=== PATIENT | female | born 1975 | race Caucasian/White ===

== ENCOUNTER → 2021-04-22 07:58 | Outpatient (CLI) | payer MEDICARE, MEDICAID, SELFPAY ==
--- NOTE | 2021-04-22 07:58 | US_ITS ---
PROCEDURE: US GALLBLADDER CLINICAL INDICATION: abd pain COMPARISON: No exams were available for comparison FINDINGS: Pancreas: The pancreatic tail is not well visualized due to overlying bowel gas. The body and head of the pancreas region have an unremarkable appearance Liver: Unremarkable. There is appropriate direction of blood flow within a non dilated portal vein. Right kidney: Unremarkable appearing. No hydronephrosis. Gallbladder: There is a large stone 2.6 cm within the gallbladder fundus area. There is also some irregular gallbladder wall thickening at this region. No pericholecystic fluid or biliary dilatation. Technologist notes a positive sonographic Edwards sign. IMPRESSION: At least 1 large stone and possibly more within the gallbladder with gallbladder wall thickening which has an irregular appearance. Consider CT of the gallbladder/abdomen without and with contrast for further evaluation as a neoplastic process of the gallbladder is not excluded based on these sonographic findings. Dictated by: Ervin Parkinson MD 04/22/2021 11:32 Ervin Parkinson MD in [place] 04/22/2021 11:32
== END ==
PROVIDERS: PCP Family Medicine; Visit Provider Family Medicine
DX: R10.9 Unspecified abdominal pain (principal)
CPT/HCPCS: 76705

== ENCOUNTER → 2021-05-03 09:57 | Outpatient (CLI) | payer MEDICARE, MEDICAID, SELFPAY ==
--- NOTE | 2021-05-03 10:02 | CT_ITS ---
PROCEDURE: CT ABDOMEN WO/W CON CLINICAL HISTORY: gallbladder stones Gallbladder wall thickening COMPARISON: US US GALLBLADDER from 04/22/2021 TECHNIQUE: Images performed without and with contrast. 70 mL Isovue 370 utilized. Axial images obtained with sagittal and coronal reformats. All CT scans at the facility use one or more dose reduction, viz: automated exposure control, ma/kV adjustment per patient size (including targeted exams where dose is matched to indication, i.e. head), or iterative reconstruction technique. FINDINGS: Minimal atelectatic changes noted in the lung bases. No focal liver lesion evident. Gallstones are present. The stones are present in the fundus of the gallbladder. There is some minimal enhancement of the gallbladder wall with a small amount of pericholecystic fluid. No irregular gallbladder enhancement is evident that would indicate gallbladder carcinoma. No biliary dilatation evident. The pancreas, spleen, adrenal glands, and kidneys have an unremarkable appearance. No intestinal obstruction or free air. There are few small mesenteric lymph nodes. IMPRESSION: 1. Cholelithiasis with minimal amount of pericholecystic fluid. No irregular gallbladder enhancement or gallbladder wall thickening that would indicate gallbladder carcinoma. 2. No biliary dilatation or other significant anomaly. Dictated by: Ervin Parkinson MD 05/03/2021 12:05 Ervin Parkinson MD in [place] 05/03/2021 12:05
== END ==
PROVIDERS: PCP Family Medicine; Visit Provider Family Medicine
DX: K80.20 Calculus of gallbladder without cholecystitis without obstruction (principal)
CPT/HCPCS: 74170; Q9967

== ENCOUNTER → 2021-05-04 10:48 | Outpatient (CLI) | payer MEDICARE, MEDICAID, SELFPAY ==
[2021-05-04 11:06] LABS: Basophils # 0.1 K/mm3 (0-0.2); Basophils % 0.8 % (0.1-2.0); Eosinophils # 0.2 K/mm3 (0.0-0.4); Hematocrit 42.4 % (37.0-47.0); Hemoglobin 14.4 g/dL (12.2-16.2); Lymphocytes # 2.3 K/mm3 (0.7-4.5); Lymphocytes % 39.1 % (10-50); Mean Corpuscular Hemoglobin 31.4 pg (27.0-31.2); Mean Corpuscular Volume 92.2 fl (81-99); Mean Platelet Volume 8.4 fl (7.4-10.4); Monocytes # 0.4 K/mm3 (0.1-1.0); Neutrophils % 51.1 % (37.0-80.0); Platelet Count 329 K/mm3 (142-424); White Blood Count 5.8 K/mm3 (4.8-10.8)
[2021-05-04 11:15] LABS: Urine Pregnancy, HCG Qual. Negative (Negative)
[2021-05-04 11:43] LABS: Alanine Aminotransferase 23 U/L (12-78); Albumin/Globulin Ratio 1.3 (1.1-1.8); Alkaline Phosphatase 63 U/L (38-126); Anion Gap 14.2 mEq/L (5-15); Aspartate Amino Transferase 29 U/L (14-36); Bilirubin,Total 0.2 mg/dl (0.2-1.3); Blood Urea Nitrogen 11 mg/dl (7-17); Calcium 9.1 mg/dl (8.4-10.2); Carbon Dioxide 27 mmol/L (22.0-30.0); Chloride 103 mmol/L (98-107); Estimated Glomerular Filt Rate 68 ml/min (>60); GFR (African American) 82 ML/MIN (>60); Glucose 123 mg/dl (74-100); Potassium 4.2 mmoL/L (3.5-5.1); Sodium 140 mmol/L (136-145)
== END ==
PROVIDERS: Visit Provider Surgery
DX: K80.20 Calculus of gallbladder without cholecystitis without obstruction (principal); J45.909 Unspecified asthma, uncomplicated; Z01.812 Encounter for preprocedural laboratory examination; Z11.52 Encounter for screening for COVID-19
CPT/HCPCS: 36415; 80053; 81025; 85025; C9803; U0003; U0005

== ENCOUNTER 2021-05-06 10:09 | Day surgery (SDC) | payer MEDICARE, MEDICAID, SELFPAY ==
[2021-05-04 12:58] VITALS: BMI 32.1
[2021-05-06] VITALS (9 sets, daily range): BP systolic 134–164; BP diastolic 65–96; PULSE 70–94; RESP 14–18; TEMP 36.2–43; O2SAT 94–100
--- NOTE | 2021-05-06 13:28 | P.PN_ITS ---
[facility] Anesthesia Checklist - Patient Identification Patient Identification: Arm Band - Structural Data Admitted From: Home Planned Operative Procedure/s: Lap. cholecystectomy Consent for Planned Operative Procedure(s) Verified: Yes - NPO Status Verified Time NPO: 00:00 - Airway Assessment C-Spine Mobility Assessed: Yes TMJ Mobility Assessed: Yes Dentition: Dentures-good fit - Neurological Assessment Level of Consciousness: Awake Hx Seizures: No Numbness or tingling in extremities: No - Anesthesia Plan Anesthesia Risk discussed: Yes Anesthesia Plan: Verified ASA Class: II Anesthesia Type: General [facility] History I have reviewed the patient's past medical history: Yes Medical History: Reports:: Anxiety, Depression, Hypertension Denies:: Cancer, Diabetes Mellitus Type 1, Diabetes Mellitus Type 2, Internal Pacemaker, MRSA *Have you ever received a pneumonia vaccine?: No *Have you received a flu vaccine this season?: Yes Other Medical History: Reports: Fibromyalgia, Sinus Problems Anesthesia experience/problems:: None Other Surgeries: No: Pacemaker Amputation: No Fractures: No - *Social History Last grade of school completed: High school graduate Smoking Status: Current every day smoker Tobacco Type: cigarettes # Packs/Day (cigarettes): 1 Alcohol Intake: never Substance Use Type: denies use *Occupational Status:: disabled Housing: house *Travel in the last 8 weeks: None - Psychiatric History Pschychiatric History:: Reports:: Anxiety, Depression Family Hx:: Cancer, Diabetes, Hypertension
--- NOTE | 2021-05-06 16:01 | HMH.OPNOTE ---
Date of procedure: 05/06/21 Pre-op Diagnosis:: Acute on chronic calculus cholecystitis Post-op Diagnosis:: Same Procedure performed:: Laparoscopic cholecystectomy Surgeon:: Landen Almodovar MD Information Officer(s):: Gary ASSISTANT MANAGER BILINGUAL:: Kevin Ribera Anesthesia: GETA Estimated blood loss (mL): 15 Operative findings:: Gallbladder wall thickening Fairly large gallstone at infundibulum Fairly severe soft tissue stranding in and around infundibulum and throughout gallbladder fossa Dome down approach with Endoloop placement utilized Operative note:: After informed consent was obtained, the patient was taken to the operating room and placed in the supine position. General anesthesia was induced and the abdomen was prepped and draped in a sterile fashion. After infiltration with local anesthetic an infraumbilical incision was made. A Veress needle was placed in position. The abdomen was insufflated. A 5 mm optical trocar was placed in position. Under direct visualization, a 12 mm trocar was placed in the subxiphoid position and 2 additional 5 mm trocars were placed in the right upper quadrant. The gallbladder was elevated up and over the liver margin. Severe thickening and soft tissue stranding noted throughout. The tissue around the cystic duct was carefully dissected. Secondary to severe acute on chronic changes the decision was made to proceed with a dome down approach . Harmonic сергей were utilized to carefully dissect the gallbladder free from the liver margin. Endoloops (x2) were placed at the infundibulum. The gallbladder was transected above the Endoloops and placed in a retrieval bag. It was then removed through the subxiphoid trocar site. The right upper quadrant was thoroughly irrigated. No active bleeding or bile leak was noted. Fascia at the subxiphoid trocar site was reapproximated utilizing 0 Ethibond. The remaining trocars were removed. All wounds were irrigated and skin was closed with 4-0 Monocryl in a subcuticular fashion. Steri-Strips were applied. The patient's anesthetic agents were reversed and extubation was completed prior to transfer to recovery in stable condition. Condition: stable Disposition: PACU Specimens:: Gallbladder and contents Complications:: No immediate
--- NOTE | 2021-05-06 16:12 | P.PN_ITS ---
[facility] Anesthesia Record Part I Intake, IV Amount: 900 Estimated blood loss (mL): 15 Urine output (mL): 50 Blood Pressure: 134/80 SaO2: 95 Pulse Rate: 94 Respiratory Rate: 14 Temperature: 98.6 F Patient is:: Awake Stable to PACU at:: 16:11
--- NOTE | 2021-05-06 16:50 | SUR.PHASEI ---
1641- detailed report given to serge Hyatt.
[2021-05-08 17:06] VITALS: BP 146/94; PULSE 76; TEMP 36.2
--- NOTE | 2021-05-08 17:06 | HMH.ANESII ---
[facility] Anesthesia Record Part II Discharge Time: 16:41 Destination: Surgical Day Care (OP Surgery) PACU nurse assessment reviewed?: Yes Patient Condition:: Good Anesthesia Complications:: None Swallowing reflex intact?: Yes Cyanosis?: No Blood Pressure: 146/94 Pulse Rate: 76 Temperature: 97.2 F Mental Status: Alert & Oriented Pain level:: 0 Nausea and/or vomitting:: None Intake, IV Amount: 0
== END 2021-05-06 17:14 | disposition home or self-care (01) ==
LOC: OR 10:12
PROVIDERS: PCP Family Medicine; Visit Provider Surgery
PROC: 0FT44ZZ Resection of Gallbladder, Percutaneous Endoscopic Approach (ICD-10-PCS; CPT 47562; principal; 2021-05-06 13:00)
DX: K81.2 Acute cholecystitis with chronic cholecystitis (principal); I10 Essential (primary) hypertension; F41.9 Anxiety disorder, unspecified; F32.9 Major depressive disorder, single episode, unspecified; M79.7 Fibromyalgia; J45.909 Unspecified asthma, uncomplicated; Z72.0 Tobacco use; Z80.9 Family history of malignant neoplasm, unspecified; Z83.3 Family history of diabetes mellitus; Z82.49 Family history of ischemic heart disease and other diseases of the circulatory system; Z79.899 Other long term (current) drug therapy
CPT/HCPCS: 47562; 88304; 96374; J2405

== ENCOUNTER → 2021-12-22 12:58 | Outpatient (CLI) | payer MEDICARE, MEDICAID, SELFPAY ==
--- NOTE | 2021-12-22 12:59 | CT_ITS ---
FINAL REPORT TECHNIQUE: Axial imaging of the head was obtained with contrast. This study was performed with techniques to keep radiation doses as low as reasonably achievable, (ALARA). Individualized dose reduction techniques using automated exposure control or adjustment of mA and/or kV according to the patient's size were employed. CLINICAL HISTORY: l side weak, patient states chronic headaches that keep getting worse, left sided numbness FINDINGS: The ventricles are normal in size. There is no evidence of hemorrhage. No masses are identified. No extra-axial fluid is seen. The sinuses are normal. There is no acute osseous abnormality. There is a retention cyst or polyp in the left maxillary sinus. There is no abnormal contrast enhancement. IMPRESSION: No acute process. Retention cyst or polyp in the left maxillary sinus. Reviewed, Interpreted and Dictated by Dennis Shah III, MD Transcribed by Anabelle Peoples Authenticated by Dennis Shah III, MD on 12/22/2021 02:51:03 PM [facility]
== END ==
PROVIDERS: PCP Family Medicine; Visit Provider Family Medicine
DX: G43.909 Migraine, unspecified, not intractable, without status migrainosus (principal); R53.1 Weakness
CPT/HCPCS: 70460; Q9967

== ENCOUNTER 2024-01-29 09:26 | Day surgery (SDC) | payer MEDICARE, MEDICAID, SELFPAY ==
[2024-01-28 12:32] VITALS: BMI 33.4
[2024-01-29] VITALS (7 sets, daily range): BP systolic 99–131; BP diastolic 60–91; PULSE 64–86; RESP 16–18; TEMP 36.2; O2SAT 94–100; BMI 33.4
--- NOTE | 2024-01-29 09:49 | HMH.SCOPE ---
Procedure: Date: 01/29/24 Patient Date of :: 1975 Procedure Performed:: Colonoscopy with polypectomy Indications:: Positive Cologuard Performing Provider:: Landen Almodovar MD Referring Provider:: . Sedation:: Monitored anesthesia care Procedure:: After informed consent was obtained the patient was taken to the endoscopy suite. Sedation ensued after the patient was transferred to the left lateral decubitus position. Pulse, blood pressure, and oxygen saturation were monitored throughout the procedure. Digital rectal exam revealed no significant abnormality. The colonoscope was placed in position. The entire colon was evaluated. The colonoscope was carefully removed and the patient was transferred to recovery in stable condition. Please see findings and specimens below for detail. Findings:: Bowel preparation fair Sigmoid diverticulosis Large complex polyps (see specimens) Specimens:: Complex lobulated sessile 7 mm polyp of the right colon (hot snare and cold biopsy forceps) Pedunculated 12 mm polyp at 60 cm (hot snare) Pedunculated large polyp at 35 cm (hot snare) Complex lobulated very large pedunculated polyp at 15 cm (hot snare) Recommendations:: Timing of repeat colonoscopy is pending pathology but likely be around 1 year secondary to size/nature/number of polyps. Complications:: No immediate Estimated blood obtained (mL): 1 Colonoscopy Component Colonoscopy Component Was a colonoscopy performed during today's procedure?: Yes Recommended follow up colonoscopy of at least 10 years?: No If no, follow up colonoscopy recommended in ___ years?: (See above) Reason for not recommending >/= 10 yr follow-up interval?: (See above)
[2024-01-29] MEDS: LACTATED RINGERS 1000ML 1,000 ML 25 ML IV (10:00)
--- NOTE | 2024-01-29 10:06 | EXP.ANES.CKL ---
[facility] Disclaimer: The information contained in this section may have been updated after the patient was seen, as this information can be updated by other users. Medical History (Updated 01/29/24 @ 10:04 by Shanice Fitzgerald RN) Depression Anxiety Hypertension Family History (Updated 01/28/24 @ 12:29 by Anabelle Stewart RN) Other Family history of cancer Family history of stroke Social History Smoking Status: Current every day smoker tobacco type: cigarettes packs per day: 1 alcohol intake: never substance use type: denies use current occupational status: disabled Travel in the last 8 weeks: None housing: house caffeine: Yes [facility] Anesthesia Checklist Patient Identification Patient Identification: Verbal (Name & ) Structural Data Admitted From: Home Planned Operative Procedure/s: colonoscopy Consent for Planned Operative Procedure(s) Verified: Yes Additional verifications Anesthesia Reactions: No Hx Blood Transfusions: No Blood Transfusion Reaction: No Airway Assessment Mallampati Score:: Class II C-Spine Mobility Assessed: Yes TMJ Mobility Assessed: Yes Dentition: Dentures-good fit Neurological Assessment Level of Consciousness: Awake, Alert and Appropriate Anesthesia Plan Anesthesia Risk discussed: Yes Anesthesia Plan: Verified ASA Class: II Anesthesia Type: MAC
[2024-01-29 10:27] LABS: HCG Qualitative, Serum Negative (Negative)
--- NOTE | 2024-01-29 11:17 | P.PNANES_ITS ---
[facility] Anesthesia Record Part I Anesthesia Record I Intake, IV Amount: 500 Hydration: Adequate Estimated blood loss (mL): 1 Urine output (mL): 0 Blood Products used (#): none Blood Pressure: 103/71 SaO2: 94 Pulse Rate: 64 Airway Patency: Patent Respiratory Rate: 16 Temperature: 97.2 F Patient is:: Drowsy and Stable Stable to PACU at:: 11:21
== END 2024-01-29 11:48 | disposition home or self-care (01) ==
PROVIDERS: PCP Family Medicine; Visit Provider Surgery
PROC: 0DJD8ZZ Inspection of Lower Intestinal Tract, Via Natural or Artificial Opening Endoscopic (ICD-10-PCS; CPT 45380; principal; 2024-01-29 10:30)
DX: R19.5 Other fecal abnormalities (principal); K57.30 Diverticulosis of large intestine without perforation or abscess without bleeding; D12.2 Benign neoplasm of ascending colon; D12.7 Benign neoplasm of rectosigmoid junction; D12.4 Benign neoplasm of descending colon; D12.5 Benign neoplasm of sigmoid colon
CPT/HCPCS: 45380; 45385; 84703; 88305; J7120

== ENCOUNTER 2024-06-25 15:25 | Outpatient (CLI) | payer MEDICARE, MEDICAID, SELFPAY ==
[2024-06-25 18:53] LABS: Basophils # 0.1 K/mm3 (0-0.2); Basophils % 0.5 % (0.1-2.0); Eosinophils # 0.1 K/mm3 (0.0-0.4); Eosinophils % 1.4 % (0.1-12.0); Hematocrit 41.8 % (37.0-47.0); Hemoglobin 14.3 g/dL (12.2-16.2); Lymphocytes # 2.7 K/mm3 (0.7-4.5); Lymphocytes % 28.7 % (10-50); Mean Corpuscular HGB Conc 34.1 g/dL (31.8-35.4); Mean Corpuscular Hemoglobin 31.4 pg (27.0-31.2); Mean Platelet Volume 8.3 fl (7.4-10.4); Monocytes # 0.6 K/mm3 (0.1-1.0); Monocytes % 6.4 % (1.7-9.3); Neutrophils # 5.9 K/mm3 (1.8-7.8); Neutrophils % 62.9 % (37.0-80.0); Platelet Count 356 K/mm3 (142-424); Red Blood Count 4.54 M/mm3 (4.20-5.40); Red Cell Distribution Width 13.2 % (11.5-17.5); White Blood Count 9.3 K/mm3 (4.8-10.8)
[2024-06-25 19:19] LABS: Alanine Aminotransferase 17 U/L (12-78); Albumin/Globulin Ratio 1.6 (1.1-1.8); Alkaline Phosphatase 59 U/L (38-126); Anion Gap 10.9 mEq/L (5-15); Aspartate Amino Transferase 23 U/L (14-36); Bilirubin,Total 0.5 mg/dl (0.2-1.3); Blood Urea Nitrogen 12 mg/dl (7-17); Calcium 9.1 mg/dl (8.4-10.2); Carbon Dioxide 28 mmol/L (22.0-30.0); Chloride 105 mmol/L (98-107); Chol/HDL Ratio 7.4 (1-3.5); Cholesterol 230 mg/dl (140-200); Estimated Glomerular Filt Rate 67 ml/min (>60); GFR (African American) 81 ML/MIN (>60); Globulin 2.5 g/dL (1.3-3.2); Glucose 89 mg/dl (74-100); HDL Cholesterol 31 mg/dl (40-60); Potassium 3.9 mmoL/L (3.5-5.1); Sodium 140 mmol/L (136-145); Total Protein,Serum 6.5 g/dl (6.3-8.2); Triglycerides 200 mg/dl (30-150); VLDL Cholesterol 40 mg/dL (0-40)
[2024-06-25 19:31] LABS: Direct LDL Cholesterol 178.49 mg/dL (100-129)
== END 2024-06-25 23:59 | disposition home or self-care (01) ==
LOC: LAB.DROPOF 06-26 15:42
PROVIDERS: PCP Family Medicine; Visit Provider Family Medicine
DX: I10 Essential (primary) hypertension (principal); R73.09 Other abnormal glucose
CPT/HCPCS: 80053; 80061; 83036; 85025

== ENCOUNTER 2024-07-16 13:06 | Outpatient (CLI) | payer MEDICARE, MEDICAID, SELFPAY ==
--- NOTE | 2024-07-16 13:07 | MM_ITS ---
PROCEDURE INFORMATION: Exam: MG Bilateral Screening 3D Mammography Exam date and time: 07/16/2024 1:09 PM Age: 48 years old Clinical indication: Screening mammogram TECHNIQUE: Imaging protocol: Bilateral Screening tomosynthesis and 2D mammography including computer-aided detection (CAD) when performed. COMPARISON: No relevant prior studies available. FINDINGS: MAMMOGRAPHY: Breast composition: There are scattered areas of fibroglandular density. Mass: None. Architectural distortion: No new or suspicious architectural distortion. Calcifications: No new or suspicious calcifications are present Asymmetric density: No new or suspicious asymmetric density is present Skin thickening: None. Axillary adenopathy: None. IMPRESSION: No mammographic evidence of malignancy. Recommend annual screening mammography unless otherwise clinically indicated. ASSESSMENT: BI-RADS category 1: Negative.
== END 2024-07-16 23:59 | disposition home or self-care (01) ==
LOC: RAD 13:07
PROVIDERS: PCP Family Medicine; Visit Provider Family Medicine
DX: Z12.31 Encounter for screening mammogram for malignant neoplasm of breast (principal)
CPT/HCPCS: 77063; 77067

== ENCOUNTER 2024-07-29 07:32 | Day surgery (SDC) | payer MEDICARE, MEDICAID, SELFPAY ==
[2024-07-29 07:46] VITALS: BMI 34.7
[2024-07-29 07:55] VITALS: BP 124/83; PULSE 75; RESP 18; TEMP 36.3; O2SAT 96
[2024-07-29] MEDS: LACTATED RINGERS 1000ML 1,000 ML 25 ML IV (08:03)
--- NOTE | 2024-07-29 08:03 | HMH.SCOPE ---
Procedure: Date: 07/29/24 Patient Date of :: 1975 Procedure Performed:: Colonoscopy with polypectomy Indications:: History of colon polyps No change in January of this year the patient underwent colonoscopy that was significant for multiple complex polyps. A very large pedunculated tubular adenoma at 15 cm was noted. Focal high-grade dysplasia noted. The base of the polyp was negative for dysplastic change. A sessile serrated adenoma of the right colon was excised. Large polyp pedunculated adenomas at 60 cm and at 35 cm were also excised. Performing Provider:: Landen Almodovar MD Referring Provider:: . Sedation:: Monitored anesthesia care Procedure:: After informed consent was obtained the patient was taken to the endoscopy suite. Sedation ensued after the patient was transferred to the left lateral decubitus position. Pulse, blood pressure, and oxygen saturation were monitored throughout the procedure. Digital rectal exam revealed no significant abnormality. The colonoscope was placed in position. The entire colon was evaluated. The colonoscope was carefully removed and the patient was transferred to recovery in stable condition. Please see findings and specimens below for detail. Findings:: Bowel preparation fair Fairly severe lack of relaxation/spasticity Moderate tortuosity Scattered diverticulosis Polyps (see specimens) Specimens:: Proximal right colon polyp (cold snare) Polyp at 25 cm (cold biopsy forceps) Recommendations:: Timing of repeat colonoscopy is pending pathology will likely be around 2 years secondary to history of large complex polyps with focal high-grade dysplasia, spasticity/lack of relaxation, and tortuosity. Complications:: No immediate Estimated blood obtained (mL): 1 Colonoscopy Component Colonoscopy Component Was a colonoscopy performed during today's procedure?: Yes Recommended follow up colonoscopy of at least 10 years?: No If no, follow up colonoscopy recommended in ___ years?: (See above) Reason for not recommending >/= 10 yr follow-up interval?: (See above)
[2024-07-29 08:15] LABS: Urine Pregnancy, HCG Qual. Negative (Negative)
[2024-07-29 08:24] VITALS: O2SAT 100
--- NOTE | 2024-07-29 08:29 | EXP.ANES.CKL ---
[facility] Disclaimer: The information contained in this section may have been updated after the patient was seen, as this information can be updated by other users. Medical History Hyperlipidemia Menorrhagia Depression Anxiety Hypertension Surgical History History of tooth extraction History of colonoscopy History of laparoscopic cholecystectomy Family History Other Family history of cancer Family history of stroke Social History (Updated 07/29/24 @ 07:56 by Carly Donaldson RN) Smoking Status: Current every day smoker tobacco type: cigarettes packs per day: 1 alcohol intake: never substance use type: denies use current occupational status: disabled Travel in the last 8 weeks: None housing: house caffeine: Yes Have you lived/traveled outside [place] in past 30 days?: No Contact w/someone who lives/traveled outside US past 30 days?: No Exposure to someone with infectious disease in past 14 days?: No Do you have a fever (greater than 100.4 F or 38 C)?: No Have you tested positive for COVID-19: No Exposed to someone with COVID-19 in past 14 days?: No Do you have a sore throat?: No Do you have a cough?: No Do you have any weakness?: No Are you experiencing any nausea/vomitting?: No Do you have any diarrhea?: No Are you experiencing any unusual bleeding?: No Do you have any muscle aches/pain?: No Do you have any abdominal pain?: No Are you experiencing loss of taste or smell?: No [facility] Anesthesia Checklist Patient Identification Patient Identification: Arm Band Structural Data Admitted From: Home Planned Operative Procedure/s: colonoscopy Consent for Planned Operative Procedure(s) Verified: Yes Verified Documents: Surgical Consent and History and Physical NPO Status Verified Time NPO: 00:00 Additional verifications Anesthesia Reactions: No Hx Blood Transfusions: No Blood Transfusion Reaction: No Airway Assessment Mallampati Score:: Class II C-Spine Mobility Assessed: Yes TMJ Mobility Assessed: Yes Dentition: Edentulous Neurological Assessment Level of Consciousness: Awake, Alert and Appropriate Anesthesia Plan Anesthesia Risk discussed: Yes Anesthesia Plan: Verified ASA Class: II Anesthesia Type: MAC
[2024-07-29 08:47] VITALS: BP 94/58; PULSE 64; RESP 18; TEMP 36.6; O2SAT 96
[2024-07-29 08:57] VITALS: BP 93/56; PULSE 61; RESP 18; O2SAT 95
[2024-07-29 09:07] VITALS: BP 100/62; PULSE 71; RESP 18; O2SAT 99
[2024-07-29 09:17] VITALS: BP 113/73; PULSE 75; RESP 18; O2SAT 99
== END 2024-07-29 09:40 | disposition home or self-care (01) ==
PROVIDERS: PCP Family Medicine; Visit Provider Surgery
PROC: 0DJD8ZZ Inspection of Lower Intestinal Tract, Via Natural or Artificial Opening Endoscopic (ICD-10-PCS; CPT 45380; principal; 2024-07-29 08:30)
DX: Z09 Encounter for follow-up examination after completed treatment for conditions other than malignant neoplasm (principal); Z86.0100 Personal history of colon polyps, unspecified; K57.30 Diverticulosis of large intestine without perforation or abscess without bleeding; K63.5 Polyp of colon
CPT/HCPCS: 45380; 45385; 81025; J7120

== ENCOUNTER 2024-08-15 14:00 | Outpatient (CLI) | payer MEDICARE, MEDICAID, SELFPAY ==
[2024-08-15 18:17] LABS: Chol/HDL Ratio 5.4 (1-3.5); Cholesterol 147 mg/dl (140-200); HDL Cholesterol 27 mg/dl (40-60); Triglycerides 105 mg/dl (30-150); VLDL Cholesterol 21 mg/dL (0-40)
[2024-08-15 18:28] LABS: Direct LDL Cholesterol 94.47 mg/dL (100-129); Hemoglobin A1C 5.8 % (4.0-6.0)
== END 2024-08-15 23:59 | disposition home or self-care (01) ==
LOC: LAB.DROPOF 08-16 11:00
PROVIDERS: PCP Family Medicine; Visit Provider Family Medicine
DX: D12.6 Benign neoplasm of colon, unspecified (principal); E78.5 Hyperlipidemia, unspecified; E66.9 Obesity, unspecified; Z68.34 Body mass index [BMI] 34.0-34.9, adult
CPT/HCPCS: 80061; 83036

== ENCOUNTER 2025-01-14 14:50 | Outpatient (CLI) | payer MEDICARE, MEDICAID, SELFPAY ==
[2025-01-14 18:50] LABS: Basophils % 0.3 % (0.1-2.0); Eosinophils # 0.2 Kmm3 (0.0-0.4); Eosinophils % 1.5 % (0.1-12.0); Hematocrit 43.3 % (37.0-47.0); Hemoglobin 14.2 g/dL (12.2-16.2); Immature Granulocytes # 0.03 10^3uL; Immature Granulocytes % 0.3 %; Lymphocytes # 3.3 K/mm3 (0.7-4.5); Lymphocytes % 32.3 % (10-50); Mean Corpuscular HGB Conc 32.8 g/dL (31.8-35.4); Mean Corpuscular Hemoglobin 30.1 pg (27.0-31.2); Mean Corpuscular Volume 91.9 fl (81-99); Mean Platelet Volume 10.4 fl (7.4-10.4); Monocytes # 0.9 K/mm3 (0.1-1.0); Monocytes % 9.1 % (1.7-9.3); Neutrophils # 5.8 K/mm3 (1.8-7.8); Neutrophils % 56.5 % (37.0-80.0); Nucleated Red Blood Cells # 0 10^3/uL; Nucleated Red Blood Cells % 0 %; Platelet Count 364 K/mm3 (142-424); Red Blood Count 4.71 M/mm3 (4.20-5.40); White Blood Count 10.3 K/mm3 (4.8-10.8)
[2025-01-14 19:14] LABS: Hemoglobin A1C 5.9 % (4.0-6.0)
[2025-01-14 19:50] LABS: Alanine Aminotransferase 15 U/L (12-78); Albumin Level 4.3 g/dl (3.5-5.0); Albumin/Globulin Ratio 1.5 (1.1-1.8); Alkaline Phosphatase 79 U/L (38-126); Anion Gap 12.2 mEq/L (5-15); Aspartate Amino Transferase 18 U/L (14-36); Bilirubin,Total 0.8 mg/dl (0.2-1.3); Blood Urea Nitrogen 13 mg/dl (7-17); Calcium 8.8 mg/dl (8.4-10.2); Carbon Dioxide 26 mmol/L (22.0-30.0); Chloride 104 mmol/L (98-107); Chol/HDL Ratio 4.9 (1-3.5); Cholesterol 173 mg/dl (140-200); Estimated Glomerular Filt Rate 67 ml/min (>60); GFR (African American) 81 ML/MIN (>60); Globulin 2.8 g/dL (1.3-3.2); Glucose 85 mg/dl (74-100); HDL Cholesterol 35 mg/dl (40-60); Potassium 4.2 mmoL/L (3.5-5.1); Sodium 138 mmol/L (136-145); Total Protein,Serum 7.1 g/dl (6.3-8.2); Triglycerides 81 mg/dl (30-150); VLDL Cholesterol 16 mg/dL (0-40)
[2025-01-14 20:00] LABS: Direct LDL Cholesterol 114.22 mg/dL (100-129)
[2025-01-14 20:08] LABS: T4 (Thyroxine) 9.3 ug/dl (5.53-11.0)
[2025-01-14 20:15] LABS: 25-OH Vitamin D, Total 21.8 ng/mL (30-100)
[2025-01-14 20:21] LABS: Thyroid Stimulating Hormone 1.29 uIU/mL (0.465-4.68)
[2025-01-14 20:30] LABS: HIV Combo NEGATIVE (Negative)
[2025-01-14 20:36] LABS: Hepatitis C Ab Qual. W/ RFX NEGATIVE (Negative)
[2025-01-16 05:13] LABS: Hepatitis B Surface Antigen Negative (Negative)
== END 2025-01-14 23:59 | disposition home or self-care (01) ==
LOC: LAB.DROPOF 01-15 13:22
PROVIDERS: PCP Family Medicine; Visit Provider Family Medicine
DX: Z79.899 Other long term (current) drug therapy (principal)
CPT/HCPCS: 80053; 80061; 82306; 83036; 84436; 84443; 85025; 86803; 87340; 87389